=== PATIENT | female | born 1995 | race Caucasian/White ===

== ENCOUNTER 2016-12-22 14:49 | Emergency (ER) | payer MEDICAID ==
[~2016-12-22] VITALS: Ht 170.2 cm; Wt 59.1 kg
[2016-12-22 14:51] VITALS: BP 106/65
[2016-12-22] MEDS ORDERED: CEFTRIAXONE PMX 2GM/50ML 50 ML IV SCH (15:30)
[2016-12-22] MEDS ORDERED: SODIUM CHLORIDE FLUSH 10ML SYR IVF ONE (15:30)
[2016-12-22 16:04] LABS: ASPARTATE AMINO TRANSFERASE 12 U/L (15-37); BLOOD UREA NITROGEN 9 mg/dL (7-18)
[2016-12-22 16:15] LABS: HEMATOCRIT 34.1 % (34.6-47.8); HEMOGLOBIN 11.3 g/dL (11.7-16.4); WHITE BLOOD COUNT 7.6 x10^3/uL (3.4-10)
[2016-12-22] MEDS ORDERED: CEFTRIAXONE PMX 1GM/50ML 50 ML ONE (16:26)
[2016-12-22] MEDS ORDERED: AZITHROMYCIN 250 MG TABLET ONE (16:27)
[2016-12-22] MEDS ORDERED: AZITHROMYCIN 500 MG TABLET PO ONE (16:30)
[2016-12-22] MEDS ORDERED: CEFTRIAXONE PMX 1GM/50ML 50 ML IV ONE (16:30)
== END 2016-12-22 17:31 | disposition home or self-care (01) ==
LOC: ED 16:59
DX: O20.0 Threatened abortion (principal); Z3A.11 11 weeks gestation of pregnancy; O23.511 Infections of cervix in pregnancy, first trimester
CPT/HCPCS: 36415; 76801; 80053; 81001; 85025; 87040; 87086; 87210; 87491; 87591; 87808; 96365; 99285; 99406; J0696

== ENCOUNTER 2017-03-26 17:27 | Outpatient (CLI) | payer MEDICAID ==
[~2017-03-26] VITALS: Ht 170.2 cm; Wt 66.7 kg
[2017-03-26 17:30] VITALS: BP 100/71
[2017-03-26 18:46] LABS: MICROSCOPIC AUTO
[2017-03-26 19:00] LABS: AMPHETAMINE SCREEN, URINE Negative (Negative); BARBITURATE SCREEN, URINE Negative (Negative); BENZODIAZEPINE SCREEN, URINE Negative (Negative); CANNABINOID SCREEN, URINE Positive (Negative); COCAINE SCREEN, URINE Negative (Negative); METHADONE SCREEN, URINE Negative (Negative); OPIATE SCREEN, URINE Negative (Negative)
[2017-03-26] MEDS ORDERED: PREN1TAB60 PO (19:18)
[2017-03-26] MEDS ORDERED: NITROFURANTOIN (MACROBID) 100 MG CAPSULE ONE (20:45)
[2017-03-26] MEDS ORDERED: NITR100C56 PO (20:54)
[2017-03-26] MEDS ORDERED: NITROFURANTOIN (MACROBID) 100 MG CAPSULE PO ONE (21:00)
== END 2017-03-26 21:15 ==
LOC: LDOP 17:27
PROVIDERS: ATTEND Obstetrics & Gynecology Gynecology
DX: O23.42 Unspecified infection of urinary tract in pregnancy, second trimester (principal); O47.02 False labor before 37 completed weeks of gestation, second trimester; O46.92 Antepartum hemorrhage, unspecified, second trimester; Z3A.25 25 weeks gestation of pregnancy
CPT/HCPCS: 59025; 76815; 80307; 81001; 87086; 99211; G0463

== ENCOUNTER 2018-01-08 10:10 | Emergency (ER) | payer MEDICAID ==
[~2018-01-08] VITALS: Ht 170.2 cm; Wt 58.7 kg
[~2018-01-08 10:10] MED LIST: NITR100C56 PO; PREN1TAB60 PO
[2018-01-08 10:55] LABS: BASOPHILS # (AUTO) 0.02 x10^3/uL (0-0.1); BASOPHILS % (AUTO) 0 % (0-1); EOSINOPHILS # (AUTO) 0.02 x10^3/uL (0-0.4); EOSINOPHILS % (AUTO) 0 % (1-7); LYMPHOCYTES # (AUTO) 1.08 x10^3/uL (1-3.4); LYMPHOCYTES % (AUTO) 15 % (22-44); MD NO; MEAN CORPUSCULAR HEMOGLOBIN 28.5 pg (27.0-34.8); MEAN CORPUSCULAR HGB CONC 32.4 g/dL (32.4-35.8); MEAN CORPUSCULAR VOLUME 87.9 fL (80-100); MEAN PLATELET VOLUME 9.6 fL (7.4-10.4); MONOCYTES # (AUTO) 0.59 x10^3/uL (0.2-0.8); MONOCYTES % (AUTO) 8 % (2-9); NEUTROPHILS # (AUTO) 5.41 x10^3/uL (1.8-6.8); NEUTROPHILS % (AUTO) 76 % (42-75); PLATELET COUNT 366 x10^3/uL (130-400); RED BLOOD COUNT 3.65 x10^6/uL (3.82-5.3); RED CELL DISTRIBUTION WIDTH 15.9 % (9.6-15.2)
[2018-01-08] MEDS ORDERED: MORPHINE SULFATE 4 MG/ML, 1ML IVPush PRN (11:00)
[2018-01-08] MEDS ORDERED: ONDANSETRON 2MG/ML, 2ML IVPush ONE (11:00)
[2018-01-08 11:07] LABS: ALANINE AMINOTRANSFERASE 22 U/L (12-78); ALBUMIN 3.2 g/dL (3.4-5.0); ANION GAP 8 mmol/L (5-15); CALCIUM 8.9 mg/dL (8.5-10.1); CHLORIDE 108 mmol/L (98-107); CREATININE 0.97 mg/dL (0.55-1.02)
[2018-01-08 11:12] LABS: ALKALINE PHOSPHATASE 96 U/L (45-117); BILIRUBIN,TOTAL 0.5 mg/dL (0.2-1.0)
[2018-01-08] MEDS ORDERED: ONDANSETRON 2MG/ML, 2ML ONE (11:30)
[2018-01-08] MEDS ORDERED: MORPHINE SULFATE 4 MG/ML, 1ML ONE (11:31)
[2018-01-08 12:43] LABS: CULTURE INDICATED? YES; MICROSCOPIC INDICATED
[2018-01-08 13:48] VITALS: BP 114/65
== END 2018-01-08 13:51 | disposition home or self-care (01) ==
LOC: ED 10:45
DX: R10.11 Right upper quadrant pain (principal); F12.10 Cannabis abuse, uncomplicated; F17.200 Nicotine dependence, unspecified, uncomplicated
CPT/HCPCS: 36415; 76700; 80053; 81001; 83690; 84703; 85025; 87086; 96374; 96375; 99284; J2405

== ENCOUNTER 2018-07-06 00:21 | Emergency (ER) | payer MEDICAID ==
[~2018-07-06] VITALS: Ht 170.2 cm; Wt 54.3 kg
--- NOTE | 2018-07-06 00:34 | NUR ---
Given water, per pa order, and ua cup for sample. Aware of need for ua. States unable to at this time.
[2018-07-06 01:27] LABS: HCG UR SG 1.032 (1.003-1.030)
[2018-07-06 01:28] LABS: CULTURE INDICATED? YES; MICROSCOPIC INDICATED
[2018-07-06] MEDS ORDERED: PHENAZOPYRIDINE 200 MG TABLET ONE (01:40)
[2018-07-06 01:44] VITALS: BP 124/74
[2018-07-06] MEDS ORDERED: PHENAZOPYRIDINE 200 MG TABLET PO ONE (02:00)
== END 2018-07-06 01:45 | disposition home or self-care (01) ==
LOC: ED 00:57
DX: N30.01 Acute cystitis with hematuria (principal)
CPT/HCPCS: 81001; 81025; 87077; 87086; 87186; 99283

== ENCOUNTER 2019-08-14 17:27 | Emergency (ER) | payer SELFPAY ==
[~2019-08-14] VITALS: Ht 170.2 cm; Wt 52.4 kg
[2019-08-14 17:41] VITALS: BP 114/74
[2019-08-14] MEDS ORDERED: HYDROcodone/APAP 5/325 TABLET ONE (19:18)
[2019-08-14] MEDS ORDERED: HYDROcodone/APAP 5/325 TABLET PO ONE (19:30)
== END 2019-08-14 19:29 | disposition home or self-care (01) ==
LOC: ED 19:01
DX: K08.89 Other specified disorders of teeth and supporting structures (principal); J02.9 Acute pharyngitis, unspecified; R50.9 Fever, unspecified; R11.0 Nausea
CPT/HCPCS: 70360; 99283